=== PATIENT | female | born 1940 | race Caucasian/White ===

== ENCOUNTER → 2019-12-03 14:57 | Outpatient (CLI) | payer MEDICARE, OTHER, SELFPAY ==
--- NOTE | 2019-12-03 | DI.ECHO.S_ITS ---
[place] [facility] +---------+ : : [address] : : : : [id number] : : : : Phone: [phone] Echocardiogram Report + + :Name: EVELIN ZULETA Study Date: 12/03/2019 Height: 63.5 in: :[facility] Weight: 117 lb : : Gender: Female BSA: 1.5 m2 : :: 1940 Age: 79 yrs BP: 144/72 mmHg: :Reason For Study: ventricular premature depolarization : :Ordering Physician: Blair Blank : :Nyasia Performed By: Jennifer Ward : :Referring: BLAIR ACEVEDO : + + Interpretation Summary 1) Normal left ventricular size, thickness, wall motion, and systolic function (EF 60-65%). 2) Normal right ventricular size and function. 3) There is mild to moderate aortic regurgitation. 4) No prior Echo available for comparison. Procedure: A two-dimensional transthoracic echocardiogram with color flow and Doppler was performed. The study quality was technically adequate. Comparison is made with the echocardiogram of 06/27/2017. The patient was in normal sinus rhythm during the exam. Left Ventricle: The left ventricle is normal in size and wall thickness. The ejection fraction is estimated to be 60-65%. Diastolic parameters suggest probable normal left ventricular diastolic function and normal filling pressures. Right Ventricle: The right ventricle is normal in size and function. Atria: The left atrial size is normal. Right atrial size is normal. A prominent eustachian valve is noted. There is no Doppler evidence for an interatrial shunt. Mitral Valve: The mitral valve is normal in structure and function. There is mild mitral regurgitation. Aortic Valve: The aortic valve is trileaflet. The aortic valve opens well. There is mild aortic valve sclerosis. There is no aortic valve stenosis. There is mild to moderate aortic regurgitation. Tricuspid Valve: The tricuspid valve is normal in structure and function. There is mild tricuspid regurgitation. The right ventricular systolic pressure is estimated to be at least 26 mmHg based on an estimated right atrial pressure of 3 mm Hg. Pulmonic Valve: The pulmonic valve is not well visualized. There is a trace or physiologic amount of pulmonic regurgitation. Great Vessels: The aortic root is normal size. The ascending aorta is normal in size. The IVC is of normal diameter and collapses greater than 50% with a sniff. This suggests a low right atrial pressure of 3 mm Hg. Pericardium/ Pleura There is no pericardial effusion. There is no pleural effusion. MMode/2D Measurements & Calculations LVIDd: 3.9 cm LVOT diam: 2.0 cm LVIDs: 2.5 cm Ao root diam: 3.0 cm FS: 36.6 % asc Aorta Diam: 2.8 cm EPSS: 0.47 cm Ao Arch Diam (Prox Trans): 2.3 cm IVSd: 0.64 cm LVPWd: 0.81 cm LV head. diameter/BSA (cm/m^2): 2.5 LV sys. diameter/BSA (cm/m^2): 1.6 LA A2 area: 12.9 cm2 RA long axis: 3.7 cm LA A4 area: 10.3 cm2 RA area: 9.6 cm2 LA length (vol): 3.6 cm RA vol: 21.0 ml LA vol: 31.6 ml RA : 13.6 ml/m2 LA vol index: 20.4 ml/m2 IVC diam: 1.5 cm RVD1 (basal): 2.9 cm TAPSE: 2.1 cm Doppler Measurements & Calculations Ao V2 max: 111.1 cm/sec LVOT Max Jc: 64.0 cm/sec Ao V2 mean: 74.2 cm/sec LV V1 max P.6 mmHg Ao max P.9 mmHg LV V1 VTI: 17.0 cm Ao mean P.5 mmHg FLORENCIA(I,D): 2.2 cm2 Ao V2 VTI: 24.6 cm FLORENCIA(V,D): 1.8 cm2 sev ratio: 0.69 FLORENCIA indexed to BSA (cm^2/m^2): 1.4 AI P1/2t: 601.5 msec AI dec slope: 224.0 cm/sec2 MV E max jc: 70.2 cm/sec TR max jc: 241.4 cm/sec MV A max jc: 78.9 cm/sec TR max P.3 mmHg MV E/A: 0.89 PA V2 max: 64.1 cm/sec Med Peak E' Jc: 5.6 cm/sec PA V2 mean: 42.4 cm/sec E/E' med: 12.6 PA mean P.84 mmHg Lat Peak E' Jc: 9.3 cm/sec E/E' lat: 7.6 E/e' average: 10.1 MV dec time: 0.24 sec SV(LVOT): 54.3 ml Reading Physician:04:28 PM
== END ==
PROVIDERS: Family Provider Family Medicine; PCP Family Medicine; Referring Provider Internal Medicine Cardiovascular Disease; Visit Provider Internal Medicine Cardiovascular Disease
DX: I08.3 Combined rheumatic disorders of mitral, aortic and tricuspid valves (principal); I49.3 Ventricular premature depolarization
CPT/HCPCS: 93306

== ENCOUNTER 2022-11-05 13:53 | Observation (INO) | payer MEDICARE, OTHER, SELFPAY ==
[2022-11-05] VITALS (17 sets, daily range): BP systolic 131–189; BP diastolic 59–80; PULSE 78–90; RESP 17–25; TEMP 37.1–37.6; O2SAT 93–99; BMI 18.2; BMI 19.1
--- NOTE | 2022-11-05 14:09 | DI.RAD.S_ITS ---
PROCEDURE: XR CHEST 1V INDICATIONS: chest pain TECHNIQUE: One view of the chest was acquired. COMPARISON: [facility], CT, CT ANGIO CHEST ABDOMEN PELVIS, 11/05/2022, 14:33. FINDINGS: Surgical changes and devices: Left pacemaker with right atrial and right ventricular leads. Lungs and pleura: Scarring at the apices. No consolidation identified. No pleural effusions or pneumothorax. Mediastinum: Mediastinal contours appear normal. Heart size is normal. Bones and chest wall: No suspicious bony lesions. Overlying soft tissues appear unremarkable. IMPRESSION: No acute cardiopulmonary abnormality identified. Dictated by: Huseyin Akins M.D. on 11/05/2022 at 15:44 Approved by: Huseyin Akins M.D. on 11/05/2022 at 15:46
--- NOTE | 2022-11-05 14:22 | ED.CHESTPAIN ---
HPI - Chest Pain General Chief Complaint: Chest Pain Stated Complaint: chest pains/ pain in shoulder when breathing Time Seen by Provider: 11/05/22 14:21 Source: patient Mode of arrival: Ambulatory Limitations: no limitations History of Present Illness HPI narrative: Patient is a 82-year-old female history of coronary artery disease with STEMI on 09/25/2022 at [facility], she had stent placement in the mid right coronary artery she also was bradycardic at that time and actually had a pacemaker placed after that, she presents today with chest pain. She says it hurts every time she takes a deep breath. She feels like she might be short of breath bleeding shallow. She denies any fever chills or other symptoms. Pain radiates through to her back into her right shoulder. Related Data Home Medications Medication Instructions Recorded Confirmed albuterol sulfate 90 mcg/actuation 1 inh inhalation DAILY 11/05/22 11/05/22 breath activated powder inhaler (ProAir RespiClick) aspirin 81 mg chewable tablet 81 mg PO DAILY 11/05/22 11/05/22 atorvastatin 40 mg tablet 40 mg PO BEDTIME 11/05/22 11/05/22 buspirone 5 mg tablet 5 mg PO BID 11/05/22 11/05/22 calcitriol 0.25 mcg capsule 0.25 mcg PO DAILY 11/05/22 11/05/22 clopidogrel 75 mg tablet (Plavix) 75 mg PO DAILY 11/05/22 11/05/22 fluocinonide 0.05 % topical 1 applic topical BID-QID PRN 11/05/22 11/05/22 ointment Itching fluticasone 250 mcg-salmeterol 50 1 inh inhalation BID 11/05/22 11/05/22 mcg/dose blistr powdr for inhalation levothyroxine 50 mcg tablet 50 mcg PO DAILY 11/05/22 11/05/22 losartan 25 mg tablet 25 mg PO DAILY 11/05/22 11/05/22 metoprolol tartrate 25 mg tablet 12.5 mg PO BID 11/05/22 11/05/22 ondansetron HCl 4 mg tablet 4 mg PO DAILY 11/05/22 11/05/22 Allergies Allergy/AdvReac Type Severity Reaction Status Date / Time iodine Allergy Intermediate Redness of Verified 11/05/22 14:08 Skin Penicillins Allergy Unknown Verified 11/05/22 14:08 Review of Systems Review of Systems ROS Unobtainable: All systems reviewed & are unremarkable except as noted in HPI and below Patient History Social History household members: spouse Smoking Status: Never smoker alcohol intake: never Smoking Status: Never smoker Substance Use Type: does not use Exam Initial Vital Signs Initial Vital Signs: Vital Signs Temperature 98.8 F 11/05/22 14:04 Pulse Rate 82 11/05/22 14:04 Respiratory Rate 18 11/05/22 14:04 Blood Pressure 179/75 H 11/05/22 14:04 Pulse Oximetry 98 11/05/22 14:04 Oxygen Delivery Method Room Air 11/05/22 14:04 GENERAL: Thin well-appearing 82-year-old female no acute distress and in no acute distress. HEENT: Head atraumatic,EOMI, pupils reactive, face symmetric, moist mucous membranes CARDIOVASCULAR: Regular rate and rhythm without murmurs, rubs or gallops. RESPIRATORY: Breath sounds equal bilaterally, no wheezes rales or rhonchi. ABDOMEN: Soft, nontender. Normoactive bowel sounds all 4 quadrants. No guarding or rebound. EXTREMITIES: Normal range of motion, no clubbing or edema. Neurovascularly intact NEUROLOGICAL: Alert and oriented x4.Normal gait and speech. SKIN: Warm, dry, no laceration, no petechiae, no rashes or lesions. Course Orders Ordered: ED Orders 11/05/22 14:09 XR chest 1V Stat EKG-12 Lead Stat 11/05/22 14:20 Complete Blood Count AUTO DIFF Stat Comprehensive Metabolic Panel Stat Lipase Stat Magnesium Stat PTT Partial Thromboplastin Gregory Stat Prothrombin Time INR Stat Troponin & CK Cardiac Panel Stat 11/05/22 14:28 CT angio chest abdomen pelvis Stat 11/05/22 15:00 EKG-12 Lead Routine 11/05/22 16:30 Trop I [Troponin I] Stat 11/05/22 17:39 COVID19 -Nasal RAPID Stat Discontinued Medications Aspirin (Aspirin 81 Mg Chew Tab) 324 mg PO NOW ONE Stop: 11/05/22 14:10 Last Admin: 11/05/22 14:15 Dose: Not Given Documented By: CTS Diphenhydramine HCl (Diphenhydramine 50 Mg/Ml Vial) 25 mg IV NOW ONE Stop: 11/05/22 14:32 Last Admin: 11/05/22 14:35 Dose: 25 mg Documented By: JESUS Ketorolac Tromethamine (Ketorolac 30 Mg/Ml Vial) 15 mg IV NOW ONE Stop: 11/05/22 16:04 Last Admin: 11/05/22 16:10 Dose: 15 mg Documented By: JESUS Methylprednisolone (Methylprednisolone 125 Mg/2 Ml Vial) 125 mg IV NOW ONE Stop: 11/05/22 14:32 Last Admin: 11/05/22 14:36 Dose: 125 mg Documented By: JESUS Morphine Sulfate (Morphine 2 Mg/Ml Inj) 2 mg IV NOW ONE Stop: 11/05/22 14:29 Last Admin: 11/05/22 14:34 Dose: 2 mg Documented By: JESUS Vital Signs Vital signs: Vital Signs - 8 hr 11/05/22 14:04 11/05/22 14:46 11/05/22 14:46 Temperature 98.8 F Pulse Rate 82 86 Respiratory Rate 18 23 Blood Pressure 179/75 H 189/80 H Pulse Oximetry 98 98 Oxygen Delivery Method Room Air 11/05/22 15:00 11/05/22 15:00 11/05/22 15:18 Temperature Pulse Rate 83 90 Respiratory Rate 23 Blood Pressure 184/74 H Pulse Oximetry 99 94 Oxygen Delivery Method 11/05/22 15:19 11/05/22 15:19 11/05/22 15:30 Temperature Pulse Rate 90 Respiratory Rate 25 H Blood Pressure 183/75 H 179/76 H Pulse Oximetry 97 Oxygen Delivery Method 11/05/22 15:30 11/05/22 15:45 11/05/22 16:00 Temperature Pulse Rate 82 81 Respiratory Rate 21 23 Blood Pressure 176/74 H Pulse Oximetry 97 97 Oxygen Delivery Method 11/05/22 16:00 11/05/22 16:15 11/05/22 16:30 Temperature Pulse Rate 83 81 Respiratory Rate 22 21 Blood Pressure 155/67 H Pulse Oximetry 97 98 Oxygen Delivery Method 11/05/22 16:30 11/05/22 16:45 11/05/22 17:00 Temperature Pulse Rate 80 80 Respiratory Rate 21 21 Blood Pressure 131/59 L Pulse Oximetry 98 97 Oxygen Delivery Method 11/05/22 17:00 11/05/22 17:15 11/05/22 17:30 Temperature Pulse Rate 80 79 Respiratory Rate 20 21 Blood Pressure 142/63 H Pulse Oximetry 97 97 Oxygen Delivery Method Room Air 11/05/22 17:30 11/05/22 17:45 Temperature Pulse Rate 81 78 Respiratory Rate 20 20 Blood Pressure Pulse Oximetry 96 96 Oxygen Delivery Method MDM - Chest Pain Lab Data 11/05/22 14:20 11/05/22 14:20 Labs: Lab Results 11/05/22 11/05/22 11/05/22 Range/Units 14:20 14:20 14:20 WBC 8.9 (4.5-11.0) X10^3/uL RBC 3.66 L (4.0-5.2) X10^6/uL Hgb 11.3 L (12.0-16.0) g/dL Hct 33.1 L (36-46) % MCV 90.5 (80-100) fL MCH 30.8 (26-34) PG MCHC 34.0 (30-36) % RDW 14.9 H (11.6-14.8) % Plt Count 208 (150-400) X10^3/uL Neut % (Auto) 82.2 H (50-75) % Lymph % (Auto) 11.0 L (25-40) % Wells % (Auto) 5.9 (3-14) % Eos % (Auto) 0.6 L (2-4) % Baso % (Auto) 0.3 (0-2) % Neut # (Auto) 7300 H (3053-4141) /uL Lymph # (Auto) 1000 L (2288-4522) /uL Wells # (Auto) 500 (0-900) /uL Eos # (Auto) 100 (0-450) /uL Baso # (Auto) 0 (0-100) /uL PT 12.6 (10.1-12.7) SECONDS INR 1.1 (0.9-1.3) APTT 33 (26-36) SECONDS Sodium 131 L (137-145) mmol/L Potassium 3.8 (3.4-5.1) mmol/L Chloride 95 L (98-107) mmol/L Carbon Dioxide 28 (22-32) mmol/L BUN 11 (7-17) mg/dL Creatinine 0.63 (0.52-1.04) mg/dL Estimated GFR > 60 (>60) mL/min BUN/Creatinine Ratio 17.5 (6-22) Glucose 142 H (80-110) mg/dL Calcium 9.1 (8.4-10.2) mg/dL Magnesium 1.8 (1.6-2.3) mg/dL Total Bilirubin 0.8 (0.2-1.3) mg/dL AST 30 (14-36) IU/L ALT 27 (<35) IU/L Alkaline Phosphatase 58 (38-126) U/L Total Creatine Kinase 51 (30-135) U/L CK-MB (CK-2) TNP CK-MB (CK-2) Rel Index TNP Troponin I 0.013 (0.01-0.034) ng/mL Total Protein 7.4 (6.3-8.2) g/dL Albumin 4.3 (3.5-5.0) g/dL Globulin 3.1 (1.7-4.1) g/dL Albumin/Globulin Ratio 1.4 (1.0-2.8) Lipase 753 H (23-300) U/L SARS-CoV-2 (PCR) (Negative) 11/05/22 11/05/22 Range/Units 16:30 17:39 WBC (4.5-11.0) X10^3/uL RBC (4.0-5.2) X10^6/uL Hgb (12.0-16.0) g/dL Hct (36-46) % MCV (80-100) fL MCH (26-34) PG MCHC (30-36) % RDW (11.6-14.8) % Plt Count (150-400) X10^3/uL Neut % (Auto) (50-75) % Lymph % (Auto) (25-40) % Wells % (Auto) (3-14) % Eos % (Auto) (2-4) % Baso % (Auto) (0-2) % Neut # (Auto) (6883-3556) /uL Lymph # (Auto) (3641-7773) /uL Wells # (Auto) (0-900) /uL Eos # (Auto) (0-450) /uL Baso # (Auto) (0-100) /uL PT (10.1-12.7) SECONDS INR (0.9-1.3) APTT (26-36) SECONDS Sodium (137-145) mmol/L Potassium (3.4-5.1) mmol/L Chloride (98-107) mmol/L Carbon Dioxide (22-32) mmol/L BUN (7-17) mg/dL Creatinine (0.52-1.04) mg/dL Estimated GFR (>60) mL/min BUN/Creatinine Ratio (6-22) Glucose (80-110) mg/dL Calcium (8.4-10.2) mg/dL Magnesium (1.6-2.3) mg/dL Total Bilirubin (0.2-1.3) mg/dL AST (14-36) IU/L ALT (<35) IU/L Alkaline Phosphatase (38-126) U/L Total Creatine Kinase (30-135) U/L CK-MB (CK-2) CK-MB (CK-2) Rel Index Troponin I 0.015 (0.01-0.034) ng/mL Total Protein (6.3-8.2) g/dL Albumin (3.5-5.0) g/dL Globulin (1.7-4.1) g/dL Albumin/Globulin Ratio (1.0-2.8) Lipase (23-300) U/L SARS-CoV-2 (PCR) Negative (Negative) Imaging Data Chest x-ray: Radiologist's Impression: PROCEDURE:? XR CHEST 1V ? INDICATIONS:? chest pain ? TECHNIQUE:? One view of the chest was acquired.? ? COMPARISON:? [facility], CT, CT ANGIO CHEST ABDOMEN PELVIS, 11/05/2022, 14:33. ? FINDINGS:? ? Surgical changes and devices:? Left pacemaker with right atrial and right ventricular leads. ? Lungs and pleura:? Scarring at the apices.? No consolidation identified.? No pleural effusions or pneumothorax.? ? Mediastinum:? Mediastinal contours appear normal.? Heart size is normal.? ? Bones and chest wall:? No suspicious bony lesions.? Overlying soft tissues appear unremarkable.? ? IMPRESSION:? No acute cardiopulmonary abnormality identified. ? ? ? Dictated by: Huseyin Akins M.D. on 11/05/2022 at 15:44 ? ? CT scan - chest: Radiologist's Impression: PROCEDURE:? CT ANGIO CHEST ABDOMEN PELVIS ? INDICATIONS:? chest pain ? TECHNIQUE:? Precontrast 5 mm thick sections acquired from the lung apices to the iliac crests.? After the administration of intravenous contrast, 2.5 mm thick sections again acquired from the lung apices to the iliac crests.? Maximum intensity projection (MIP) oblique sagittal and coronal reformats were then acquired.? For radiation dose reduction, the following was used:? automated exposure control.? ? COMPARISON:? [facility], CR, XR CHEST 1V, 11/05/2022, 14:25. ? FINDINGS:? Image quality:? Good.? ? AORTA:? No acute aortic syndrome.? No aortic dissection.? No aneurysm. ? CHEST:? Lungs and pleura:? Biapical pleural scarring.? Mild interlobular septal thickening.? A few small pulmonary nodules.? For example:? -Right lower lobe 0.5 cm, (/144).? -Right lower lobe 0.5 cm, (/153).? -Left lower lobe 0.3 cm, (/135).? ? There are a few areas of distal mucus airway plugging.? Minimal pleural thickening or pleural effusion at the right upper lobe.? No significant pleural effusion.? No pneumothorax No pleural effusions or pneumothorax.? ? Mediastinum:? Left pacemaker with right atrial and right ventricular leads. Heart size is normal.? No pericardial effusion.? No mediastinal or hilar adenopathy by size criteria.? Calcified subcarinal lymph node.? Central pulmonary arteries are normal in size.? No central pulmonary embolism.? Esophagus is normal in caliber.? No hiatal hernias.? ? Bones and chest wall:? No axillary adenopathy by size criteria.? Tiny left thyroid nodule.? No suspicious bony lesions.? No vertebral body compression fractures.? Curvilinear density in the medial left breast.? ? ? ABDOMEN:? Vasculature:? No aortic dissection.? Severe calcified plaque.? Celiac trunk and mesenteric arteries are patent.? Renal arteries are also patent.? ? Solid organs:? Liver is normal in size and enhancement.? Gallbladder is absent.? Biliary system is non dilated.? Pancreas enhances normally.? Spleen is normal in size and enhancement.? No adrenal nodules.? Both kidneys are normal in size and enhancement, without hydronephrosis.? ? Peritoneum and bowel:? No free fluid or air.? Sigmoid anastomosis is patulous. ? Nodes and vessels:? No retroperitoneal or mesenteric adenopathy by size criteria.? Inferior vena cava is normal in morphology.? ? Miscellaneous:? Periumbilical hernia containing small bowel. ? ? PELVIS:? Genitourinary:? Bladder wall thickness is normal.? ? Miscellaneous:? No inguinal hernias or adenopathy.? No ventral hernias.? Trace presacral edema.? ? Bones:? Small sclerotic focus at the right hip.? This could represent a bone island or enchondroma. Minimal deformity of the inferior sternum. No vertebral body compression fractures.? Right sacral Tarlov cysts.? ? ? IMPRESSION:? 1. No aortic dissection. ? 2. A few small scattered pulmonary nodules.? Largest measuring up to 0.5 cm.? Biapical pleural scarring.? ? 3. Small umbilical hernia containing bowel.? No small bowel obstruction.? Trace presacral edema. ? 4. Sigmoid anastomosis is patulous.? Somewhat prominent stool in the distal colon. ? 5. Left pacemaker with right atrial and right ventricular leads.? Curvilinear hypodensity in the medial left breast.? This could represent hematoma or the sequelae of prior surgery.? Dictated by: Huseyin Akins M.D. on 11/05/2022 at 16:00 ? ? Approved by: Huseyin Akins M.D. on 11/05/2022 at 16:24 ? ECG Data Interpretation: EKG 1. Sinus rhythm rate 83 MO interval 66 QRS 78 QTC 399 significant T-wave inversions in inferior leads without ST elevations EKG 2. Persistent T-wave inversions no changes Compared to previous EKGs [facility] on October 22 this appears similar MDM Narrative Medical decision making narrative: Patient presenting with chest pain worse with deep breathing pleuritic in nature. It is not positional does not seem like it is a pericarditis. Blood work is overall reassuring no leukocytosis anemia no electrolyte abnormality, no MAURICIO she is negative troponins EKGs overall appears stable. She was given Dilaudid for pain which has helped. CT angio does not show any sign of dissection pulmonary embolism or pericardial effusion. EKGs show persistent T-wave inversions which look similar to previous EKG done at [facility]. I have received and reviewed records from [facility] during her admission and pacemaker insertion. Pacemaker leads are in place on x-ray and CT. Dr. Stafford, cardiology updated on patient's symptoms test results recommends an echocardiogram. Dr. Colón updated patient's symptoms test results and kindly accepts Discharge Plan Departure Patient Disposition: Admitted as Observation Clinical Impression: Atypical chest pain Admit Date/Time: 11/05/22 17:45 Admit Provider: Jazzmine Colón
[2022-11-05 14:28] LABS: Add Manual Diff / Slide Review NO; Basophils Absolute Auto 0 /uL (0-100); Basophils Percent Auto 0.3 % (0-2); Eosinophils Absolute Auto 100 /uL (0-450); Eosinophils Percent Auto 0.6 % (2-4); Hematocrit 33.1 % (36-46); Hemoglobin 11.3 g/dL (12.0-16.0); Lymphocytes Absolute Auto 1000 /uL (1100-4500); Mean Corpuscular Hemoglobin 30.8 PG (26-34); Mean Corpuscular Volume 90.5 fL (80-100); Monocytes Absolute Auto 500 /uL (0-900); Monocytes Percent Auto 5.9 % (3-14); Neutrophils Absolute Auto 7300 /uL (1500-7000); Neutrophils Percent Auto 82.2 % (50-75); Platelet Count 208 X10^3/uL (150-400); Red Blood Cell Count 3.66 X10^6/uL (4.0-5.2); Red Cell Distribution Width 14.9 % (11.6-14.8); White Blood Cell Count 8.9 X10^3/uL (4.5-11.0)
--- NOTE | 2022-11-05 14:28 | DI.CT.S_ITS ---
PROCEDURE: CT ANGIO CHEST ABDOMEN PELVIS INDICATIONS: chest pain TECHNIQUE: Precontrast 5 mm thick sections acquired from the lung apices to the iliac crests. After the administration of intravenous contrast, 2.5 mm thick sections again acquired from the lung apices to the iliac crests. Maximum intensity projection (MIP) oblique sagittal and coronal reformats were then acquired. For radiation dose reduction, the following was used: automated exposure control. COMPARISON: [facility], CR, XR CHEST 1V, 11/05/2022, 14:25. FINDINGS: Image quality: Good. AORTA: No acute aortic syndrome. No aortic dissection. No aneurysm. CHEST: Lungs and pleura: Biapical pleural scarring. Mild interlobular septal thickening. A few small pulmonary nodules. For example: -Right lower lobe 0.5 cm, (6/144). -Right lower lobe 0.5 cm, (6/153). -Left lower lobe 0.3 cm, (6/135). There are a few areas of distal mucus airway plugging. Minimal pleural thickening or pleural effusion at the right upper lobe. No significant pleural effusion. No pneumothorax No pleural effusions or pneumothorax. Mediastinum: Left pacemaker with right atrial and right ventricular leads. Heart size is normal. No pericardial effusion. No mediastinal or hilar adenopathy by size criteria. Calcified subcarinal lymph node. Central pulmonary arteries are normal in size. No central pulmonary embolism. Esophagus is normal in caliber. No hiatal hernias. Bones and chest wall: No axillary adenopathy by size criteria. Tiny left thyroid nodule. No suspicious bony lesions. No vertebral body compression fractures. Curvilinear density in the medial left breast. ABDOMEN: Vasculature: No aortic dissection. Severe calcified plaque. Celiac trunk and mesenteric arteries are patent. Renal arteries are also patent. Solid organs: Liver is normal in size and enhancement. Gallbladder is absent. Biliary system is non dilated. Pancreas enhances normally. Spleen is normal in size and enhancement. No adrenal nodules. Both kidneys are normal in size and enhancement, without hydronephrosis. Peritoneum and bowel: No free fluid or air. Sigmoid anastomosis is patulous. Nodes and vessels: No retroperitoneal or mesenteric adenopathy by size criteria. Inferior vena cava is normal in morphology. Miscellaneous: Periumbilical hernia containing small bowel. PELVIS: Genitourinary: Bladder wall thickness is normal. Miscellaneous: No inguinal hernias or adenopathy. No ventral hernias. Trace presacral edema. Bones: Small sclerotic focus at the right hip. This could represent a bone island or enchondroma. Minimal deformity of the inferior sternum. No vertebral body compression fractures. Right sacral Tarlov cysts. IMPRESSION: 1. No aortic dissection. 2. A few small scattered pulmonary nodules. Largest measuring up to 0.5 cm. Biapical pleural scarring. 3. Small umbilical hernia containing bowel. No small bowel obstruction. Trace presacral edema. 4. Sigmoid anastomosis is patulous. Somewhat prominent stool in the distal colon. 5. Left pacemaker with right atrial and right ventricular leads. Curvilinear hypodensity in the medial left breast. This could represent hematoma or the sequelae of prior surgery. Dictated by: Huseyin Akins M.D. on 11/05/2022 at 16:00 Approved by: Huseyin Akins M.D. on 11/05/2022 at 16:24
[2022-11-05] MEDS: MORPHINE 2 MG/ML INJ IV (14:34)
[2022-11-05] MEDS: diphenhydrAMINE 50 MG/ML VIAL 25 MG IV (14:35)
[2022-11-05] MEDS: methylPREDNISolone 125 MG/2 ML VIAL IV (14:36)
[2022-11-05 14:38] LABS: INR 1.1 (0.9-1.3); Prothrombin Time 12.6 SECONDS (10.1-12.7)
[2022-11-05 14:40] LABS: PTT Partial Thromboplastin Tim 33 SECONDS (26-36)
[2022-11-05 14:43] LABS: Alanine Aminotransferase 27 IU/L (<35); Albumin 4.3 g/dL (3.5-5.0); Albumin Globulin Ratio 1.4 (1.0-2.8); Alkaline Phosphatase 58 U/L (38-126); Aspartate Aminotransferase 30 IU/L (14-36); BUN Creatinine Ratio 17.5 (6-22); Bilirubin Total 0.8 mg/dL (0.2-1.3); Blood Urea Nitrogen 11 mg/dL (7-17); Calcium 9.1 mg/dL (8.4-10.2); Carbon Dioxide 28 mmol/L (22-32); Chloride 95 mmol/L (98-107); Creatine Kinase 51 U/L (30-135); Estimated Glomerular Filt Rate > 60 mL/min (>60); Globulin 3.1 g/dL (1.7-4.1); Glucose 142 mg/dL (80-110); HEMOLYSIS < 15 (0-50); Lipase 753 U/L (23-300); Magnesium 1.8 mg/dL (1.6-2.3); Potassium 3.8 mmol/L (3.4-5.1); Sodium 131 mmol/L (137-145); Total Protein 7.4 g/dL (6.3-8.2)
--- NOTE | 2022-11-05 14:49 | PC.NURSE ---
Patient reports [place] Pacemaker placed 2 weeks ago. Ecchymosis to lower chest and left arm, pt states r/t procedure.
[2022-11-05 14:54] LABS: Troponin I 0.013 ng/mL (0.01-0.034)
--- NOTE | 2022-11-05 15:36 | PC.NURSE ---
Pt returned from CT. She denies any SOB or difficulty breathing. No rash or swelling observed. Pt alert and oriented.
[2022-11-05] MEDS: KETOROLAC 30 MG/ML VIAL 15 MG IV (16:10)
[2022-11-05 17:07] LABS: Troponin I 0.015 ng/mL (0.01-0.034)
[2022-11-05 18:10] LABS: COVID19 -Nasal RAPID Negative (Negative)
--- NOTE | 2022-11-05 18:36 | PC.NURSE ---
Patient brought up from ER to room 222. Patient alert, oriented and states she is feeling a little better. States pain is in her right upper back, pain worse with a deep breath now states is mild at rest when not breathing deeply. Dr. Lee notified of patient's arrival. A waiting orders. Float RN assisting with admission. Patient oriented to room and call light. Call light placed within reach.
--- NOTE | 2022-11-05 18:41 | DI.ECHO.S_ITS ---
[facility]+ [facility] +---------+ : : [address] : : : : [id number] : : : : Phone: [phone] Echocardiogram Report + + :Name: EVELIN ZULETA Study Date: 11/06/2022 Height: 63 in : :[facility] ReadingLocation: Weight: 107 lb : : Gender: Female BSA: 1.5 m2 : :: 1940 Age: 82 yrs BP: 138/61 mmHg: :Reason For Study: CHEST PAIN, CAD : :Ordering Physician: GO, : :KEYUR KUHN Performed By: Jennifer Ward : :Referring: KEYUR STILES MD : + + Interpretation Summary The left ventricle is normal in size and wall thickness. The ejection fraction is estimated to be 55-60%. Hypokinesis of mid to distal anterolateral wall extending into the mid to distal inferolateral wall as well. New wall motion abnormalities. The right ventricle is normal in size and function. There is a catheter/pacemaker lead seen in the right atrium. There is moderate tricuspid regurgitation. Compared to the prior echo exam, there has been an increase in TR severity. The right ventricular systolic pressure is estimated to be at least 32 mmHg based on an estimated right atrial pressure of 8 mm Hg. Previously right atrial pressure about 3 mmHg. Procedure: Images were not obtained from all of the standard acoustic windows due to the limited scope of the study. A two-dimensional transthoracic echocardiogram with color flow and Doppler was performed in limited views only to assess LV and RV function. Comparison is made with the echocardiogram of 12/03/2019. The study quality was technically good. The patient was in sinus rhythm with heart rates between 65-72 bpm during the exam. Left Ventricle: The left ventricle is normal in size and wall thickness. There is no thrombus. The ejection fraction is estimated to be 55-60%. Hypokinesis of mid to distal anterolateral wall extending into the mid to distal inferolateral wall as well. New wall motion abnormalities. Right Ventricle: The right ventricle is normal in size and function. Atria: The left atrial size is normal. There has been no significant change since the previous study. There is a catheter/pacemaker lead seen in the right atrium. Right atrial size is normal. Tricuspid Valve: The tricuspid valve is normal. The right ventricular systolic pressure is estimated to be at least 32 mmHg based on an estimated right atrial pressure of 8 mm Hg. There is moderate tricuspid regurgitation. Compared to the prior echo exam, there has been an increase in TR severity. Great Vessels: The IVC is dilated (diameter is greater than 2.1 cm) yet it collapses greater than 50% with a sniff. This suggests a right atrial pressure of 8 mm Hg. Pericardium/ Pleura There is no pericardial effusion. There is no pleural effusion. MMode/2D Measurements & Calculations LVIDd: 3.9 cm LA A2 area: 14.7 cm2 LVIDs: 2.5 cm LA A4 area: 15.7 cm2 FS: 35.8 % LA length (vol): 4.5 cm EPSS: 0.66 cm LA vol: 43.9 ml IVSd: 0.78 cm LA vol index: 29.6 ml/m2 LVPWd: 0.72 cm LV head. diameter/BSA (cm/m^2): 2.6 LV sys. diameter/BSA (cm/m^2): 1.7 RA long axis: 4.7 cm RVD1 (basal): 3.5 cm RA area: 15.3 cm2 TAPSE: 1.8 cm RA vol: 42.2 ml RA : 28.4 ml/m2 IVC diam: 2.2 cm Doppler Measurements & Calculations TR max ivette: 243.0 cm/sec TR max P.6 mmHg Reading Physician:11:00 AM
[2022-11-05] MEDS: ACETAMINOPHEN 325 MG TABLET 650 MG PO (20:47)
[2022-11-05] MEDS: ATORVASTATIN 20 MG TABLET 40 MG PO (20:48)
[2022-11-05] MEDS: METOPROLOL IR 25 MG TABLET 12.5 MG PO (20:48)
--- NOTE | 2022-11-05 21:34 | P.HP_ITS ---
History of Present Illness History of Present Illness Date Patient Seen: 11/05/22 Time Patient Seen: 22:00 Chief complaint: chest pains/ pain in shoulder when breathing Narrative: Ms. Edin Saba is an 82W with PMH CAD s/p STEMI on 09/25 s/p stents and s/p ppm for bradycardia, HTN, hypothyroidism who presents to the hospital with chest pain. She notes developing chest pain today with taking breaths. She notes chest pain is substernal and radiates to the back. The pain is sharp, it began at rest. It has mostly resolved now. She had no shortness of breath. She does have a history of reflux and has had some reflux symptoms, nausea, and abdominal discomfort. But she says this feels different than her previous usual reflux. Her symptoms did start when eating breakfast. No cough, fevers. No abdominal pain, nausea, vomiting. She has not missed taking her cardiac medications In the ED workup was done, vitals notable for afebrile, heart rate in the 80s, respiratory rate in the teens, blood pressure 170s/70s, o2 sat 98% on room air. EKG reviewed by me and showed st depressions similar to prior. Labs reviewed by me and notable for WBC 8.9, hgb 11.3. Na 131, creatinine 0.63. Trop 0.013- >0.015. Lipase 743. COVID negative. Chest xray reviewed by me and notable for no acute process and left pacemaker. CT angio showed no PE, no aortic dissection. [facility] Social History household members: spouse Smoking Status: Never smoker alcohol intake: never Meds Home Medications and Allergies Home Medications Medication Instructions Recorded Confirmed Type albuterol sulfate 90 mcg/actuation 1 inh inhalation DAILY 11/05/22 11/05/22 History breath activated powder inhaler (ProAir RespiClick) aspirin 81 mg chewable tablet 81 mg PO DAILY 11/05/22 11/05/22 History atorvastatin 40 mg tablet 40 mg PO BEDTIME 11/05/22 11/05/22 History buspirone 5 mg tablet 5 mg PO BID 11/05/22 11/05/22 History calcitriol 0.25 mcg capsule 0.25 mcg PO DAILY 11/05/22 11/05/22 History clopidogrel 75 mg tablet (Plavix) 75 mg PO DAILY 11/05/22 11/05/22 History fluocinonide 0.05 % topical 1 applic topical BID-QID PRN 11/05/22 11/05/22 History ointment Itching fluticasone 250 mcg-salmeterol 50 1 inh inhalation BID 11/05/22 11/05/22 History mcg/dose blistr powdr for inhalation levothyroxine 50 mcg tablet 50 mcg PO DAILY 11/05/22 11/05/22 History losartan 25 mg tablet 25 mg PO DAILY 11/05/22 11/05/22 History metoprolol tartrate 25 mg tablet 12.5 mg PO BID 11/05/22 11/05/22 History ondansetron HCl 4 mg tablet 4 mg PO DAILY 11/05/22 11/05/22 History Allergies Allergy/AdvReac Type Severity Reaction Status Date / Time iodine Allergy Intermediate Redness of Verified 11/05/22 14:08 Skin Penicillins Allergy Unknown Verified 11/05/22 14:08 Review of Systems Review of Systems Narrative: 14 systems reviewed and negative aside from what is noted in HPI Exam Vital Signs (past 8 hours): - 11/05/22 14:04 11/05/22 14:46 11/05/22 14:46 Temperature 98.8 F Pulse Rate 82 86 Respiratory Rate 18 23 Blood Pressure 179/75 H 189/80 H Pulse Oximetry 98 98 Oxygen Delivery Method Room Air 11/05/22 15:00 11/05/22 15:00 11/05/22 15:18 Temperature Pulse Rate 83 90 Respiratory Rate 23 Blood Pressure 184/74 H Pulse Oximetry 99 94 Oxygen Delivery Method 11/05/22 15:19 11/05/22 15:19 11/05/22 15:30 Temperature Pulse Rate 90 Respiratory Rate 25 H Blood Pressure 183/75 H 179/76 H Pulse Oximetry 97 Oxygen Delivery Method 11/05/22 15:30 11/05/22 15:45 11/05/22 16:00 Temperature Pulse Rate 82 81 Respiratory Rate 21 23 Blood Pressure 176/74 H Pulse Oximetry 97 97 Oxygen Delivery Method 11/05/22 16:00 11/05/22 16:15 11/05/22 16:30 Temperature Pulse Rate 83 81 Respiratory Rate 22 21 Blood Pressure 155/67 H Pulse Oximetry 97 98 Oxygen Delivery Method 11/05/22 16:30 11/05/22 16:45 11/05/22 17:00 Temperature Pulse Rate 80 80 Respiratory Rate 21 21 Blood Pressure 131/59 L Pulse Oximetry 98 97 Oxygen Delivery Method 11/05/22 17:00 11/05/22 17:15 11/05/22 17:30 Temperature Pulse Rate 80 79 Respiratory Rate 20 21 Blood Pressure 142/63 H Pulse Oximetry 97 97 Oxygen Delivery Method Room Air 11/05/22 17:30 11/05/22 17:45 11/05/22 18:00 Temperature Pulse Rate 81 78 Respiratory Rate 20 20 Blood Pressure 141/65 H Pulse Oximetry 96 96 Oxygen Delivery Method 11/05/22 18:00 11/05/22 18:40 11/05/22 20:00 Temperature 99.6 F Pulse Rate 78 82 Respiratory Rate 20 17 Blood Pressure 169/72 H Pulse Oximetry 95 93 Oxygen Delivery Method Room Air Room Air Oxygen Delivery Method Room Air Narrative Exam Narrative: GEN: no acute distress HEENT: moist mucous membranes, PERRL NECK: trachea midline, no JVD PULM: clear bilaterally, no wheezes, rhonchi, rales CV: regular rate and rhythm, with no murmurs ABD: soft, nontender, nondistended, no organomegaly, normal bowel sounds EXT: warm and well perfused with no edema NEURO: awake, alert, oriented, no focal deficits Objective Labs 11/05/22 14:20 11/05/22 14:20 Labs: Laboratory Results - last 24 hr 11/05/22 11/05/22 11/05/22 14:20 14:20 14:20 WBC 8.9 RBC 3.66 L Hgb 11.3 L Hct 33.1 L MCV 90.5 MCH 30.8 MCHC 34.0 RDW 14.9 H Plt Count 208 Neut % (Auto) 82.2 H Lymph % (Auto) 11.0 L [place] % (Auto) 5.9 Eos % (Auto) 0.6 L Baso % (Auto) 0.3 Neut # (Auto) 7300 H Lymph # (Auto) 1000 L [place] # (Auto) 500 Eos # (Auto) 100 Baso # (Auto) 0 PT 12.6 INR 1.1 APTT 33 Sodium 131 L Potassium 3.8 Chloride 95 L Carbon Dioxide 28 BUN 11 Creatinine 0.63 Estimated GFR > 60 BUN/Creatinine Ratio 17.5 Glucose 142 H Calcium 9.1 Magnesium 1.8 Total Bilirubin 0.8 AST 30 ALT 27 Alkaline Phosphatase 58 Total Creatine Kinase 51 CK-MB (CK-2) TNP CK-MB (CK-2) Rel Index TNP Troponin I 0.013 Total Protein 7.4 Albumin 4.3 Globulin 3.1 Albumin/Globulin Ratio 1.4 Lipase 753 H SARS-CoV-2 (PCR) 11/05/22 11/05/22 16:30 17:39 WBC RBC Hgb Hct MCV MCH MCHC RDW Plt Count Neut % (Auto) Lymph % (Auto) [place] % (Auto) Eos % (Auto) Baso % (Auto) Neut # (Auto) Lymph # (Auto) [place] # (Auto) Eos # (Auto) Baso # (Auto) PT INR APTT Sodium Potassium Chloride Carbon Dioxide BUN Creatinine Estimated GFR BUN/Creatinine Ratio Glucose Calcium Magnesium Total Bilirubin AST ALT Alkaline Phosphatase Total Creatine Kinase CK-MB (CK-2) CK-MB (CK-2) Rel Index Troponin I 0.015 Total Protein Albumin Globulin Albumin/Globulin Ratio Lipase SARS-CoV-2 (PCR) Negative Assessment & Plan Assessment & Plan narrative: 1. Pleuritic chest pain -rule out cardiac etiology -not classic symptoms for pericarditis, but consider as etiology -may be secondary to reflux symptoms, will order pepcid -EKG showed similar to prior with persistent t-wave inversions per my observation -troponins negative x2, continue to trend -CTA negative for PE, no noted intrapulmonary process noted -lipase elevated in 700s, CT abdomen showed normal pancreas -soldering machine tender recommended observation and ECHO -stress test also ordered 2. CAD s/p stents s/p PPM -continue dual anti-platelets therapy with aspirin, plavix -continue statin -continue metoprolol 3. Hypothyroidism -continue synthroid I have discussed plan and obtained history from the patient. I have discussed plan of care with ED physician and bedside nurse. I have reviewed labs, EKG, chest xray and CT imaging CODE: Full Proxy: Av Saba family Quality VTE Deep Vein Thrombosis/Pulmonary Embolism Present on Admission: No MIPS - Meds 'Current medications' to include all prescriptions, bzhe-roo-tsoarey products, herbals, cannabis/cannabidiol products, and vitamin/mineral/dietary (nutritional) supplements. I have utilized all available resources to obtain, update, or review the patient?s current medications. [If Yes, STOP here]: Yes
[2022-11-05] MEDS: MELATONIN 3 MG TABLET 6 MG PO (23:13)
[2022-11-06] VITALS: BP 132/61; PULSE 65; RESP 17; TEMP 36.4; O2SAT 97
[2022-11-06 04:00] VITALS: BP 138/61; PULSE 71; RESP 19; TEMP 36.3; O2SAT 97
[2022-11-06 04:54] LABS: Add Manual Diff / Slide Review NO; Basophils Absolute Auto 0 /uL (0-100); Basophils Percent Auto 0.3 % (0-2); Eosinophils Absolute Auto 0 /uL (0-450); Hematocrit 31.3 % (36-46); Hemoglobin 10.7 g/dL (12.0-16.0); Lymphocytes Absolute Auto 600 /uL (1100-4500); Lymphocytes Percent Auto 6.3 % (25-40); Mean Corpuscular HGB Conc 34.2 % (30-36); Mean Corpuscular Hemoglobin 30.4 PG (26-34); Monocytes Absolute Auto 300 /uL (0-900); Monocytes Percent Auto 2.9 % (3-14); Neutrophils Absolute Auto 9000 /uL (1500-7000); Neutrophils Percent Auto 90.5 % (50-75); Platelet Count 173 X10^3/uL (150-400); Red Blood Cell Count 3.51 X10^6/uL (4.0-5.2); Red Cell Distribution Width 15.1 % (11.6-14.8); White Blood Cell Count 9.9 X10^3/uL (4.5-11.0)
[2022-11-06 05:01] LABS: BUN Creatinine Ratio 27.9 (6-22); Blood Urea Nitrogen 17 mg/dL (7-17); Calcium 8.9 mg/dL (8.4-10.2); Carbon Dioxide 22 mmol/L (22-32); Chloride 96 mmol/L (98-107); Estimated Glomerular Filt Rate > 60 mL/min (>60); Glucose 153 mg/dL (80-110); HEMOLYSIS < 15 (0-50); Potassium 4.3 mmol/L (3.4-5.1); Sodium 127 mmol/L (137-145)
[2022-11-06 05:13] LABS: Troponin I < 0.012 ng/mL (0.01-0.034)
[2022-11-06 08:00] VITALS: BP 141/62; PULSE 71; RESP 18; TEMP 36.8; O2SAT 96
[2022-11-06] MEDS: ASPIRIN 81 MG CHEW TAB PO (10:33)
[2022-11-06] MEDS: FAMOTIDINE 20 MG TABLET PO (10:34)
[2022-11-06] MEDS: ENOXAPARIN 40 MG/0.4 ML SYRINGE SUBCUT (10:34)
[2022-11-06] MEDS: CLOPIDOGREL 75 MG TABLET PO (10:34)
--- NOTE | 2022-11-06 10:57 | CM.DANOTE ---
DCP: Case received, EMR reviewed and met with patient. Spouse, Av, was at bedside. Introduced self and role. Was able to obtain information regarding patient's baseline activity status prior to hospitalization. DCP assessment completed with information currently available. Patient is an 82 year old female who admitted yesterday afternoon to the care of the hospitalist team. PCP: Dr. Mari. Payer: confirmed: Medicare/. Patient came to the hospital via private vehicle secondary to having pain when she takes a deep breath. Patient has history of STEMI on 09-25, had stent placement in the mid right coronary artery. Patient is here for a cardiac work up. Met with patient in her room. She was sitting up in bed, alert and oriented, pleasant. Confirmed that patient resides in [place] with spouse, Av. She is independent at her baseline. P: DCP to continue to follow. Discussed in team rounds, patient could possibly discharge today after testing is done, if negative. Shereen Price RN/Substation Operator Apprentice Discharge Planning/Care Management CM Discharge Assessment Start: 11/06/22 10:56 Freq: Status: Active Protocol: Document 11/06/22 10:56 (Rec: 11/06/22 10:57 [id number]) Discharge Planning Assessment Assigned Screening Representative Shereen Price RN/Substation Operator Apprentice Advance Directives? No History Provided By Patient,Medical Record Prior Living Arrangements House Household Members spouse Type of transporation used prior to Drives own vehicle admit Independent with ADL's Yes Is patient alert and oriented? Yes Caregiver for Another No Barriers to Discharge No Discharge Plan Home Transportation Arrangement Spouse Referrals Initiated None needed Whiteboard Updated in Patient Room with Yes name and ext. # of Screening Representative Review Status In Process Next Review Type Continued Stay Review
[2022-11-06 12:00] VITALS: BP 133/66; PULSE 77; RESP 17; TEMP 36.6; O2SAT 97
[2022-11-06] MEDS: METOPROLOL IR 25 MG TABLET 12.5 MG PO (12:08)
[2022-11-06] MEDS: LEVOTHYROXINE 50 MCG TABLET PO (12:08)
--- NOTE | 2022-11-06 13:42 | P.DS_ITS ---
History of Present Illness History of Present Illness Date Patient Seen: 11/05/22 Time Patient Seen: 22:00 Chief complaint: chest pains/ pain in shoulder when breathing Narrative: Ms. Edin Saba is an 82W with PMH CAD s/p STEMI on 09/25 s/p stents and s/p ppm for bradycardia, HTN, hypothyroidism who presents to the hospital with chest pain. She notes developing chest pain today with taking breaths. She notes chest pain is substernal and radiates to the back. The pain is sharp, it began at rest. It has mostly resolved now. She had no shortness of breath. She does have a history of reflux and has had some reflux symptoms, nausea, and abdominal discomfort. But she says this feels different than her previous usual reflux. Her symptoms did start when eating breakfast. No cough, fevers. No abdominal pain, nausea, vomiting. She has not missed taking her cardiac medications. In the ED workup was done, vitals notable for afebrile, heart rate in the 80s, respiratory rate in the teens, blood pressure 170s/70s, o2 sat 98% on room air. EKG reviewed by me and showed st depressions similar to prior. Labs reviewed by me and notable for WBC 8.9, hgb 11.3. Na 131, creatinine 0.63. Trop 0.013- >0.015. Lipase 743. COVID negative. Chest xray reviewed by me and notable for no acute process and left pacemaker. CT angio showed no PE, no aortic dissection. Discharge Providers Provider Date of admission: 11/05/22 17:45 Discharge Date: 11/06/22 Primary care physician: MANNY Kline Discharge provider: Geoffrey Fuchs DO Summary Hospital Course Discharge Diagnosis: 1. Pleuritic chest pain -atypical as worse with deep breaths -not classic symptoms for pericarditis, but consider as etiology -may be secondary to reflux symptoms, will order pepcid -EKG showed similar to prior with persistent t-wave inversions per my observation -troponins negative x3 -CTA negative for PE, no noted intrapulmonary process noted -lipase elevated in 700s, CT abdomen showed normal pancreas -power marketer recommended observation and ECHO, echo showed EF 55-60% with hypokinesis of mid to distal anterolateral wall extending into the mid to distal inferolateral wall, also worsened TR, likely secondary to her recent heart attack and stents -patient elected to defer stress test as outpatient 2. CAD s/p stents s/p PPM -continue dual anti-platelets therapy with aspirin, plavix -continue statin -continue metoprolol 3. Hypothyroidism -continue synthroid Hospital Course: Admitted with pleuritic chest pain. Patient's pain improved while admitted and echo showed normal EF with WMA's which were likely secondary to recent PA with stents placed. Trops neg x3. Likelihood of occluded stent very low given normal EKG, normal trops and pleuritic pain. Patient offered to complete stress test, but she preferred to complete as outpatient. Discharged home to f/u with power marketer. Time Spent with Patient Time spent: Greater than 30 minutes Exam Vital Signs (past 8 hours): - 11/06/22 08:00 11/06/22 08:00 11/06/22 12:00 Temperature 98.3 F 97.8 F Pulse Rate 71 77 Respiratory Rate 18 17 Blood Pressure 141/62 H 133/66 Pulse Oximetry 96 97 Oxygen Delivery Method Room Air Oxygen Flow Rate 0 0 Oxygen Delivery Method Room Air Oxygen Flow Rate 0 Narrative Exam Narrative: GEN: no acute distress HEENT: moist mucous membranes, PERRL NECK: trachea midline, no JVD PULM: clear bilaterally, no wheezes, rhonchi, rales CV: regular rate and rhythm, with no murmurs ABD: soft, nontender, nondistended, no organomegaly, normal bowel sounds EXT: warm and well perfused with no edema NEURO: awake, alert, oriented, no focal deficits Objective Labs 11/06/22 04:38 11/06/22 04:38 Labs: Laboratory Results - last 24 hr 11/05/22 11/05/22 11/05/22 14:20 14:20 14:20 WBC 8.9 RBC 3.66 L Hgb 11.3 L Hct 33.1 L MCV 90.5 MCH 30.8 MCHC 34.0 RDW 14.9 H Plt Count 208 Neut % (Auto) 82.2 H Lymph % (Auto) 11.0 L [place] % (Auto) 5.9 Eos % (Auto) 0.6 L Baso % (Auto) 0.3 Neut # (Auto) 7300 H Lymph # (Auto) 1000 L [place] # (Auto) 500 Eos # (Auto) 100 Baso # (Auto) 0 PT 12.6 INR 1.1 APTT 33 Sodium 131 L Potassium 3.8 Chloride 95 L Carbon Dioxide 28 BUN 11 Creatinine 0.63 Estimated GFR > 60 BUN/Creatinine Ratio 17.5 Glucose 142 H Calcium 9.1 Magnesium 1.8 Total Bilirubin 0.8 AST 30 ALT 27 Alkaline Phosphatase 58 Total Creatine Kinase 51 CK-MB (CK-2) TNP CK-MB (CK-2) Rel Index TNP Troponin I 0.013 Total Protein 7.4 Albumin 4.3 Globulin 3.1 Albumin/Globulin Ratio 1.4 Lipase 753 H SARS-CoV-2 (PCR) 11/05/22 11/05/22 11/06/22 16:30 17:39 04:38 WBC 9.9 RBC 3.51 L Hgb 10.7 L Hct 31.3 L MCV 89.0 MCH 30.4 MCHC 34.2 RDW 15.1 H Plt Count 173 Neut % (Auto) 90.5 H Lymph % (Auto) 6.3 L [place] % (Auto) 2.9 L Eos % (Auto) 0.0 L Baso % (Auto) 0.3 Neut # (Auto) 9000 H Lymph # (Auto) 600 L [place] # (Auto) 300 Eos # (Auto) 0 Baso # (Auto) 0 PT INR APTT Sodium Potassium Chloride Carbon Dioxide BUN Creatinine Estimated GFR BUN/Creatinine Ratio Glucose Calcium Magnesium Total Bilirubin AST ALT Alkaline Phosphatase Total Creatine Kinase CK-MB (CK-2) CK-MB (CK-2) Rel Index Troponin I 0.015 Total Protein Albumin Globulin Albumin/Globulin Ratio Lipase SARS-CoV-2 (PCR) Negative 11/06/22 04:38 WBC RBC Hgb Hct MCV MCH MCHC RDW Plt Count Neut % (Auto) Lymph % (Auto) [place] % (Auto) Eos % (Auto) Baso % (Auto) Neut # (Auto) Lymph # (Auto) [place] # (Auto) Eos # (Auto) Baso # (Auto) PT INR APTT Sodium 127 L Potassium 4.3 Chloride 96 L Carbon Dioxide 22 BUN 17 Creatinine 0.61 Estimated GFR > 60 BUN/Creatinine Ratio 27.9 H Glucose 153 H Calcium 8.9 Magnesium Total Bilirubin AST ALT Alkaline Phosphatase Total Creatine Kinase CK-MB (CK-2) CK-MB (CK-2) Rel Index Troponin I < 0.012 Total Protein Albumin Globulin Albumin/Globulin Ratio Lipase SARS-CoV-2 (PCR) PFSH Social History household members: spouse Smoking Status: Never smoker alcohol intake: never Discharge Plan Discharge Plan Patient Disposition: Home Provider Discharge Comment: You were admitted for chest pain which changed with breathing so is likely not your heart. However since you are higher risk you should have an outpatient stress test ordered by your PCP or power marketer. Discharge orders & Medications Prescriptions: Continued ProAir RespiClick 90 mcg/actuation aerosol powdr breath activated 1 inh INHALATION DAILY atorvastatin 40 mg Tablet 40 mg PO BEDTIME buspirone 5 mg Tablet 5 mg PO BID fluticasone propion-salmeterol 250-50 mcg/dose Blister With Device 1 inh INHALATION BID ondansetron HCl 4 mg tablet 4 mg PO DAILY Patient Comments: DISSOLVE 1 TABLET ON TONGUE ONCE A DAY NEEDED FOR NAUSEA fluocinonide 0.05 % Ointment 1 applic TOPICAL BID-QID PRN (Reason: Itching) clopidogrel [Plavix] 75 mg Tablet 75 mg PO DAILY levothyroxine 50 mcg Tablet 50 mcg PO DAILY losartan 25 mg tablet 25 mg PO DAILY Patient Comments: take 1 tablet by mouth once daily for high blood pressure aspirin 81 mg Tablet,Chewable 81 mg PO DAILY calcitriol 0.25 mcg Capsule 0.25 mcg PO DAILY metoprolol tartrate 25 mg tablet 12.5 mg PO BID Patient Comments: take 1/2 tablet by mouth twice a day Follow up/Referrals: Glo Mari, MANNY [Primary Care Provider] - 1 Week Visit Report/Discharge Packet Instructions: DI for Atypical Chest Pain Stand Alone Forms: Patient Portal/API, Stroke Signs & Symptoms Discharge Data Primary Care Provider: Glo Mari Attending Provider: Jazzmine Colón Admit Date/Time: 11/05/22 17:45 Discharges patient from system. Discharge Date/Time: 11/06/22 15:10 Quality VTE Deep Vein Thrombosis/Pulmonary Embolism Present on Admission: No
== END 2022-11-06 15:10 | disposition home or self-care (01) ==
LOC: ED 17:28 → AC 17:46
PROVIDERS: Internal Medicine; Admitting Provider Neuromusculoskeletal Medicine, Sports Medicine; Emergency Provider Emergency Medicine; Family Provider Family Medicine; PCP Nurse Practitioner Family; Referring Provider Emergency Medicine; Visit Provider Neuromusculoskeletal Medicine, Sports Medicine
DX: R07.9 Chest pain, unspecified (principal); Z95.0 Presence of cardiac pacemaker; E03.9 Hypothyroidism, unspecified; I25.10 Atherosclerotic heart disease of native coronary artery without angina pectoris; Z20.822 Contact with and (suspected) exposure to COVID-19
CPT/HCPCS: 36415; 71045; 71275; 74174; 80048; 80053; 82550; 83690; 83735; 84484; 85025; 85610; 85730; 87635; 93005; 93010; 93307; 96372; 96374; 96375; 99284; C9803; G0378; A9270; J1200; J1650; J1885; J2270; J2930; Q9967

== ENCOUNTER 2023-06-07 08:18 | Emergency (ER) | payer MEDICARE, OTHER, SELFPAY ==
[2022-11-05 17:48] VITALS: BMI 19.1
[2023-06-07] VITALS (8 sets, daily range): BP systolic 147–188; BP diastolic 59–85; PULSE 64–70; RESP 13–19; TEMP 36.6; O2SAT 95–99; BMI 18.6
--- NOTE | 2023-06-07 08:31 | DI.RAD.S_ITS ---
PROCEDURE: XR CHEST 1V INDICATIONS: chest pain TECHNIQUE: One view of the chest was acquired. COMPARISON: [facility], CR, XR CHEST 1V, 11/05/2022, 14:25. FINDINGS: Surgical changes and devices: Left chest wall pulse generator with dual-chamber electrode leads in place. Lungs and pleura: No dense consolidation or pleural effusion. Right base pleural thickening. Suspected emphysematous changes. Mediastinum: Normal heart size Bones and chest wall: Degenerative changes. IMPRESSION: No acute radiographic abnormality. Small pulmonary nodules better evaluated on prior CT than radiography. Dictated by: Kwame Hunter M.D. on 06/07/2023 at 8:57 Approved by: Kwame Hunter M.D. on 06/07/2023 at 8:58
[2023-06-07 08:44] LABS: Add Manual Diff / Slide Review NO; Basophils Absolute Auto 0 /uL (0-100); Basophils Percent Auto 0.5 % (0-2); Eosinophils Absolute Auto 0 /uL (0-450); Eosinophils Percent Auto 0.5 % (2-4); Hematocrit 33.4 % (36-46); Hemoglobin 11.3 g/dL (12.0-16.0); Lymphocytes Absolute Auto 900 /uL (1100-4500); Lymphocytes Percent Auto 13.3 % (25-40); Mean Corpuscular HGB Conc 33.9 % (30-36); Mean Corpuscular Hemoglobin 30.2 PG (26-34); Mean Corpuscular Volume 89.1 fL (80-100); Monocytes Absolute Auto 700 /uL (0-900); Neutrophils Absolute Auto 5100 /uL (1500-7000); Neutrophils Percent Auto 74.7 % (50-75); Platelet Count 182 X10^3/uL (150-400); Red Blood Cell Count 3.75 X10^6/uL (4.0-5.2); Red Cell Distribution Width 13.9 % (11.6-14.8); White Blood Cell Count 6.8 X10^3/uL (4.5-11.0)
--- NOTE | 2023-06-07 08:50 | ED_ITS ---
HPI - Chest Pain General Chief Complaint: Chest Pain Stated Complaint: Chest Pain Time Seen by Provider: 06/07/23 08:27 History of Present Illness HPI narrative: 83-year-old female with a history of coronary artery disease who arrives by ambulance with a chief complaint of chest pain. Reports that she has substernal chest pain on the left side that she noticed yesterday morning. It radiates to her left shoulder. Says it gets worse with a deep breath and is almost gone if she is not taking a deep breath. She is not had a cough or shortness of breath she is not had fevers nausea or diaphoresis. No recent prolonged immobilizations. Says that her pain is actually better today than it was yesterday. She went to an urgent care in [facility] today and EMS was called she was brought here by ambulance. She continues to have mild chest pain. Patient has a history of coronary artery disease with a stent in September of this year done at [facility] Related Data Home Medications Medication Instructions Recorded Confirmed albuterol sulfate 90 mcg/actuation 1 inh inhalation DAILY 11/05/22 11/05/22 breath activated powder inhaler (ProAir RespiClick) aspirin 81 mg chewable tablet 81 mg PO DAILY 11/05/22 11/05/22 atorvastatin 40 mg tablet 40 mg PO BEDTIME 11/05/22 11/05/22 buspirone 5 mg tablet 5 mg PO BID 11/05/22 11/05/22 calcitriol 0.25 mcg capsule 0.25 mcg PO DAILY 11/05/22 11/05/22 clopidogrel 75 mg tablet (Plavix) 75 mg PO DAILY 11/05/22 11/05/22 fluocinonide 0.05 % topical 1 applic topical BID-QID PRN 11/05/22 11/05/22 ointment Itching fluticasone 250 mcg-salmeterol 50 1 inh inhalation BID 11/05/22 11/05/22 mcg/dose blistr powdr for inhalation levothyroxine 50 mcg tablet 50 mcg PO DAILY 11/05/22 11/05/22 losartan 25 mg tablet 25 mg PO DAILY 11/05/22 11/05/22 metoprolol tartrate 25 mg tablet 12.5 mg PO BID 11/05/22 11/05/22 ondansetron HCl 4 mg tablet 4 mg PO DAILY 11/05/22 11/05/22 Allergies Allergy/AdvReac Type Severity Reaction Status Date / Time iodine Allergy Intermediate Redness of Verified 11/05/22 14:08 Skin Penicillins Allergy Mild Rash Verified 11/06/22 11:03 Patient History Social History household members: spouse Smoking Status: Never smoker alcohol intake: never Smoking Status: Never smoker Substance Use Type: does not use Exam Initial Vital Signs Initial Vital Signs: Vital Signs Pulse Rate 70 06/07/23 08:23 Pulse Oximetry 98 06/07/23 08:23 Course Orders Ordered: Discontinued Medications Sodium Chloride (Normal Saline 0.9%) 1,000 mls @ 150 mls/hr IV CONT DOLORES Last Infusion: 06/07/23 09:46 Dose: Infused Documented By: Admin: 06/07/23 09:04 Dose: 150 mls/hr Documented By: SPF Nitroglycerin (Nitroglycerin 0.4 Mg Sl Tab) 0.4 mg SL [id number] PRN PRN Reason: Chest Pain Last Admin: 06/07/23 09:04 Dose: 0.4 mg Documented By: SPF Vital Signs Vital signs: Vital Signs - 8 hr 06/07/23 08:24 Temperature 97.8 F Pulse Rate 68 Respiratory Rate 16 Blood Pressure 187/81 H Pulse Oximetry 97 Oxygen Delivery Method Room Air MDM - Chest Pain Medical Records Data Medical records narrative: Reviewed discharge summary from October of this year when she was admitted here with atypical chest pain without acute cause for chest pain identified. Lab Data Lab results narrative: CBC with diff and CMP are unremarkable, troponin is normal in spite of greater than 24 hours of symptoms. 06/07/23 08:36 06/07/23 08:36 Labs: Lab Results 06/07/23 Range/Units 08:36 WBC 6.8 (4.5-11.0) X10^3/uL RBC 3.75 L (4.0-5.2) X10^6/uL Hgb 11.3 L (12.0-16.0) g/dL Hct 33.4 L (36-46) % MCV 89.1 (80-100) fL MCH 30.2 (26-34) PG MCHC 33.9 (30-36) % RDW 13.9 (11.6-14.8) % Plt Count 182 (150-400) X10^3/uL Neut % (Auto) 74.7 (50-75) % Lymph % (Auto) 13.3 L (25-40) % Colbert % (Auto) 11.0 (3-14) % Eos % (Auto) 0.5 L (2-4) % Baso % (Auto) 0.5 (0-2) % Neut # (Auto) 5100 (6554-6622) /uL Lymph # (Auto) 900 L (1696-5964) /uL Colbert # (Auto) 700 (0-900) /uL Eos # (Auto) 0 (0-450) /uL Baso # (Auto) 0 (0-100) /uL PT 12.7 H (9.4-12.5) SECONDS INR 1.1 (0.9-1.3) APTT 31 (25.1-36.5) SECONDS D-Dimer 897 H (<500) ng/ml Sodium 129 L (137-145) mmol/L Potassium 4.1 (3.4-5.1) mmol/L Chloride 99 (98-107) mmol/L Carbon Dioxide 26 (22-32) mmol/L BUN 14 (7-17) mg/dL Creatinine 0.67 (0.52-1.04) mg/dL Estimated GFR > 60 (>60) mL/min BUN/Creatinine Ratio 20.9 (6-22) Glucose 106 (80-110) mg/dL Calcium 9.1 (8.4-10.2) mg/dL Magnesium 1.9 (1.6-2.3) mg/dL Total Bilirubin 1.1 (0.2-1.3) mg/dL AST 41 H (14-36) IU/L ALT 31 (<35) IU/L Alkaline Phosphatase 59 (38-126) U/L Total Creatine Kinase 65 (30-135) U/L Troponin I < 0.012 (0.01-0.034) ng/mL Total Protein 6.7 (6.3-8.2) g/dL Albumin 3.7 (3.5-5.0) g/dL Globulin 3.0 (1.7-4.1) g/dL Albumin/Globulin Ratio 1.2 (1.0-2.8) Lipase 112 (23-300) U/L Imaging Data Chest x-ray: My Impression: No acute findings on independent review of chest x-ray Radiologist's Impression: IMPRESSION: No acute radiographic abnormality. Small pulmonary nodules better evaluated on prior CT than radiography. ECG Data Interpretation: ECG shows normal sinus rhythm at 66 no previous infarction no ST elevation normal intervals and axis no acute change Treatment and disposition Shared decision making:: See above, discussed admission versus discharge home patient prefers to go home MDM Narrative Medical decision making narrative: 83-year-old female who does have a history of coronary artery disease presenting with atypical chest pain that she is had for greater than 24 hours. It is improving spontaneously. She has a normal EKG and normal troponin, I considered but do not suspect pulmonary embolism she is not hypoxic she is not dyspneic. She does not have an infiltrate on her chest x-ray. I discussed disposition with the patient, offered her the option of admission for further evaluation of her chest pain which she did not wish to do. Given the she is improving spontaneously her symptoms are atypical and she is had some symptoms in the past I think it is reasonable for her to go home I recommended acetaminophen as needed for pain discharged home Discharge Plan Departure Patient Disposition: Home Clinical Impression: Atypical chest pain Instructions: DI for Atypical Chest Pain Activity Restrictions/Additional Instructions: Emergency department workup today is reassuring. I am not seeing evidence that this is an acute problem related to your heart. I think it is safe to go home. You can use Tylenol as needed for pain and I recommend that you continue previous home medications. If you are having increasing chest pain shortness of breath fevers or other acute symptoms return to the emergency department. If you are having increased chest pain, please call 911 to return to the ED. follow up soon with her primary care provider. Prescriptions: No Action ProAir RespiClick 90 mcg/actuation aerosol powdr breath activated 1 inh INHALATION DAILY atorvastatin 40 mg Tablet 40 mg PO BEDTIME buspirone 5 mg Tablet 5 mg PO BID fluticasone propion-salmeterol 250-50 mcg/dose Blister With Device 1 inh INHALATION BID ondansetron HCl 4 mg tablet 4 mg PO DAILY Patient Comments: DISSOLVE 1 TABLET ON TONGUE ONCE A DAY NEEDED FOR NAUSEA fluocinonide 0.05 % Ointment 1 applic TOPICAL BID-QID PRN (Reason: Itching) clopidogrel [Plavix] 75 mg Tablet 75 mg PO DAILY levothyroxine 50 mcg Tablet 50 mcg PO DAILY losartan 25 mg tablet 25 mg PO DAILY Patient Comments: take 1 tablet by mouth once daily for high blood pressure aspirin 81 mg Tablet,Chewable 81 mg PO DAILY calcitriol 0.25 mcg Capsule 0.25 mcg PO DAILY metoprolol tartrate 25 mg tablet 12.5 mg PO BID Patient Comments: take 1/2 tablet by mouth twice a day Referrals: Glo Mari ARNP [Primary Care Provider] - Stand Alone Forms: Patient Portal/API
[2023-06-07 08:53] LABS: INR 1.1 (0.9-1.3); Prothrombin Time 12.7 SECONDS (9.4-12.5)
[2023-06-07 08:56] LABS: PTT Partial Thromboplastin Tim 31 SECONDS (25.1-36.5)
[2023-06-07 09:02] LABS: D Dimer 897 ng/ml (<500)
[2023-06-07] MEDS: SODIUM CHLORIDE 0.9% 1,000 ML 150 ML IV (09:04)
[2023-06-07] MEDS: NITROGLYCERIN 0.4 MG SL TAB SL (09:04)
[2023-06-07 09:06] LABS: Alanine Aminotransferase 31 IU/L (<35); Albumin 3.7 g/dL (3.5-5.0); Albumin Globulin Ratio 1.2 (1.0-2.8); Alkaline Phosphatase 59 U/L (38-126); Aspartate Aminotransferase 41 IU/L (14-36); BUN Creatinine Ratio 20.9 (6-22); Bilirubin Total 1.1 mg/dL (0.2-1.3); Blood Urea Nitrogen 14 mg/dL (7-17); Calcium 9.1 mg/dL (8.4-10.2); Carbon Dioxide 26 mmol/L (22-32); Chloride 99 mmol/L (98-107); Creatine Kinase 65 U/L (30-135); Estimated Glomerular Filt Rate > 60 mL/min (>60); Glucose 106 mg/dL (80-110); HEMOLYSIS 21 (0-50); Lipase 112 U/L (23-300); Magnesium 1.9 mg/dL (1.6-2.3); Potassium 4.1 mmol/L (3.4-5.1); Sodium 129 mmol/L (137-145); Total Protein 6.7 g/dL (6.3-8.2)
[2023-06-07 09:16] LABS: Troponin I < 0.012 ng/mL (0.01-0.034)
--- NOTE | 2023-06-07 09:19 | PC.NURSE ---
Patient was given 1x nitro by EMS in route and upon arrival pain was a 3/10 in her chest. 2nd dose of nitro was administered (see MAR) and after 5 minutes patient is no longer having any chest pain. Pt able to take deep breathes without chest pain.
== END 2023-06-07 09:47 | disposition home or self-care (01) ==
PROVIDERS: Emergency Provider Emergency Medicine; Family Provider Family Medicine; PCP Nurse Practitioner Family
DX: R07.89 Other chest pain (principal)
CPT/HCPCS: 36415; 71045; 80053; 82550; 83690; 83735; 84484; 85025; 85379; 85610; 85730; 93005; 93010; 99284

== ENCOUNTER → 2023-08-29 10:14 | Outpatient (CLI) | payer MEDICARE, OTHER, SELFPAY ==
[2022-11-05 17:48] VITALS: BMI 19.1
--- NOTE | 2023-08-29 | DI.ECHO.S_ITS ---
[facility]---------+ [facility] +---------+ : : 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 The left ventricular ejection fraction is normal. The ejection fraction is estimated to be 55-60%. Compared to the prior exam, the lateral wall motion abnormality is improved. The right ventricle is normal in size and function. There is a pacemaker lead in the right ventricle. There is mild mitral regurgitation. Compared to the prior echo study, there has been no change in the severity of mitral regurgitation. There is mild to moderate aortic regurgitation. Compared to the prior echo study, there has been no change in the severity of aortic regurgitation. There is moderate tricuspid regurgitation. Compared to the prior echo exam, there has been no change in TR severity. The right ventricular systolic pressure is estimated to be at least 33 mmHg based on an estimated right atrial pressure of 3 mm Hg. Compared to the prior echo exam, there has been no change in the severity of pulmonary hypertension. There is mild luminal irregularity and echogenicity in the abdominal aorta, suggestive of aortic atherosclerotic disease. Procedure: A two-dimensional transthoracic echocardiogram with color flow and Doppler was performed. The study quality was technically adequate. Comparison is made with the echocardiogram of 11/06/22. The patient was in normal sinus rhythm during the exam. The heart rate ranged between 64-78 bpm during the study. The patient had occasional PACs during the exam. Left Ventricle: The left ventricle is normal in size and wall thickness. There is no thrombus. The ejection fraction is estimated to be 55-60%. The left ventricular ejection fraction is normal. There are no focal wall motion abnormalities. Compared to the prior exam, the lateral wall motion abnormality is improved. MV E/A: 1.2 Med Peak E' Jc: 5.5 cm/sec E/E' med: 14.2. Right Ventricle: The right ventricle is normal in size and function. There is a pacemaker lead in the right ventricle. The right ventricular systolic function is normal. Atria: The left atrial size is normal. There has been no significant change since the previous study. Right atrial size is normal. There is a catheter/pacemaker lead seen in the right atrium. The interatrial septum grossly appears intact with no obvious evidence for an atrial septal defect. Mitral Valve: There is mild mitral annular calcification. There is no mitral valve stenosis. There is mild mitral regurgitation. Compared to the prior echo study, there has been no change in the severity of mitral regurgitation. Aortic Valve: The aortic valve is trileaflet. The aortic valve is mildly calcified. There is no aortic valve stenosis. There is mild to moderate aortic regurgitation. Compared to the prior echo study, there has been no change in the severity of aortic regurgitation. Tricuspid Valve: The tricuspid valve is normal. There is no tricuspid stenosis. There is moderate tricuspid regurgitation. The right ventricular systolic pressure is estimated to be at least 33 mmHg based on an estimated right atrial pressure of 3 mm Hg. Compared to the prior echo exam, there has been no change in TR severity. Compared to the prior echo exam, there has been no change in the severity of pulmonary hypertension. Pulmonic Valve: The pulmonic valve is not well visualized. There is no pulmonic valvular stenosis. There is no pulmonic valvular regurgitation. Great Vessels: The aortic root is normal size. The aortic arch could not be visualized. There is mild luminal irregularity and echogenicity in the abdominal aorta, suggestive of aortic atherosclerotic disease. The IVC is of normal diameter and collapses greater than 50% with a sniff. This suggests a low right atrial pressure of 3 mm Hg. Pericardium/ Pleura There is no pericardial effusion. There is no pleural effusion. MMode/2D Measurements & Calculations LVIDd: 3.7 cm LVOT diam: 1.9 cm LVIDs: 2.5 cm Ao root diam: 3.3 cm FS: 30.9 % asc Aorta Diam: 3.1 cm IVSd: 0.87 cm LVPWd: 0.72 cm LV head. diameter/BSA (cm/m^2): 2.5 LV sys. diameter/BSA (cm/m^2): 1.7 LA A2 area: 15.7 cm2 RA long axis: 4.4 cm LA A4 area: 14.1 cm2 RA area: 13.7 cm2 LA length (vol): 4.3 cm RA vol: 36.8 ml LA vol: 43.9 ml RA : 24.8 ml/m2 LA vol index: 29.6 ml/m2 IVC diam: 1.8 cm RVD1 (basal): 3.8 cm RVD2 (mid): 3.4 cm TAPSE: 2.8 cm Doppler Measurements & Calculations Ao V2 max: 122.2 cm/sec LVOT Max Jc: 81.0 cm/sec Ao V2 mean: 93.0 cm/sec LV V1 max P.6 mmHg Ao max P.0 mmHg LV V1 VTI: 23.3 cm Ao mean P.8 mmHg FLORENCIA(I,D): 1.8 cm2 Ao V2 VTI: 36.1 cm FLORENCIA(V,D): 1.8 cm2 sev ratio: 0.65 FLORENCIA indexed to BSA (cm^2/m^2): 1.2 AI P1/2t: 516.0 msec AI dec slope: 277.6 cm/sec2 MV E max jc: 77.8 cm/sec TR max jc: 272.4 cm/sec MV A max jc: 63.8 cm/sec TR max P.7 mmHg MV E/A: 1.2 PA V2 max: 68.4 cm/sec Med Peak E' Jc: 5.5 cm/sec PA V2 mean: 46.8 cm/sec E/E' med: 14.2 PA mean P.97 mmHg Lat Peak E' Jc: 8.1 cm/sec PA pr(Accel): 55.0 mmHg E/E' lat: 9.6 E/e' average: 11.9 MV dec time: 0.17 sec SV(LVOT): 63.3 ml Reading Physician:05:33 PM
== END ==
PROVIDERS: Family Provider Family Medicine; PCP Nurse Practitioner Family; Referring Provider Internal Medicine Interventional Cardiology; Visit Provider Internal Medicine Interventional Cardiology
DX: I08.3 Combined rheumatic disorders of mitral, aortic and tricuspid valves (principal); I25.2 Old myocardial infarction; Z95.0 Presence of cardiac pacemaker
CPT/HCPCS: 93306